=== PATIENT | female | born 1990 | race African-American/Black ===

== ENCOUNTER 2024-07-13 12:14 | Emergency (ER) | payer OTHER, SELFPAY ==
--- NOTE | ~2024-07-13 | XR_ITS ---
EXAMINATION: XR HAND/WRIST, RIGHT CLINICAL INFORMATION: punched the wall COMPARISON: None available. TECHNIQUE: PA, lateral, and oblique views of the right hand and wrist. FINDINGS: Normal bone mineralization. No fracture, dislocation, or suspicious bone lesion. Carpal bones are intact and normally aligned. No arthritic changes. Dorsal soft tissue swelling of the hand. XR/XR hand wrist RT IMPRESSION: 1. Soft tissue swelling dorsally. No fracture or dislocation. Electronically signed by: Fermin Noble MD 07/13/2024 01:06 PM JAIMEE
[2024-07-13 12:32] VITALS: BP 122/68; PULSE 93; O2SAT 100
--- NOTE | 2024-07-13 12:53 | ED.GENADULT ---
HPI - General Adult General Chief complaint: Extremity Injury, Upper Stated complaint: R HAND PAIN/PUNCHED WALL PER EMS Time Seen by Provider: 07/13/24 12:30 Source: patient Mode of arrival: ambulatory Limitations: no limitations History of Present Illness ED Provider: Sawyer Rees HPI narrative: 34 yold female with pmh Schizoaffective bipolar presents to the ED for right hand pain. Patient is is from [facility] as an inpatient. Today out of anger she punched a wall and cause pain. Patient denies anyone assaulting her or any blunt trauma by a weapon. Patient denies any suicidal or homicidal thoughts. Patient states complete range of motion of hand but does have some pain. Patient denies any other trauma. Related Data Allergies Allergy/AdvReac Type Severity Reaction Status Date / Time divalproex sodium AdvReac Unknown Unknown Verified 07/13/24 14:43 [From Depakote] haloperidol [From Haldol] AdvReac Unknown Unknown Verified 07/13/24 14:43 Review of Systems Review of Systems: Right hand pain Yes all other systems are reviewed and are negative [facility] Social History Social History Advance Directives: No Advance Directives Information Provided: No Physical Exam ED Vital Signs: Vital Signs - 24 hr 07/13/24 15:02 07/13/24 17:14 Temperature 97.3 F 97.8 F Pulse Rate 82 79 Respiratory Rate 16 13 Blood Pressure 119/57 L 107/53 L Pulse Oximetry 100 99 Oxygen Delivery Method Room Air Room Air BMI result Body Mass Index 26.8 Const General: cooperative, healthy appearing, comfortable, no acute distress, well developed, alert, awake and Physically active Orientation/consciousness: patient oriented x3 HENMT Head: Yes normal to inspection, Yes No palpable skull fracture present, Yes normocephalic and Yes atraumatic Eyes General: appearance normal, both eyes and all related structures Neck Neck: Yes normal visual inspection, Yes full ROM, Yes no lymphadenopathy, Yes no meningeal signs, Yes trachea midline, Yes supple, No anterior neck swelling and No tender Chest Chest palpation & inspection: normal inspection of the chest and normal palpation of entire chest wall Resp Effort & Inspection: normal respiratory effort and able to speak in complete sentences Auscultation: clear to auscultation bilaterally Cardio Jugular venous distension: no JVD Heart sounds: S1 normal heart sound present and S2 normal heart sound present GI Inspection: Yes normal to inspection Palpation (GI): Soft to palpation, not firm, nontender, no guarding and not rigid General: Yes no CVA tenderness Back/Spine/Pelvis Back: no CVA tenderness and No back tenderness Skin General skin exam: no rashes or lesions noted, elasticity normal and turgor normal Neuro General: patient oriented x3, gait normal, tone normal, moves all extremities, Normal light touch and pain sensation, no meningeal signs, no focal motor deficits, CN's II-XI intact bilaterally and normal sensation to monofilament Extrem General: Yes normal to inspection, Yes full ROM and Yes capillary refill normal Hand/finger images: 1. Positive for abrasion. Negative for active bleeding. Positive for swelling and tenderness on palpation. Patient has complete range of motion of all fingers. Negative for signs of tendon or nerve injury. Negative for erythema, warmth, coldness, bluish discoloration, or obvious deformity. Rest of extremity normal. Motor/neuro/vascular exam intact Psych Appearance: grossly normal, well kempt and not disheveled Medications Administered Discontinued Medications Generic Name Dose Route Start Last Admin Trade Name Freq PRN Reason Stop Dose Admin Acetaminophen 975 mg 07/13/24 13:04 07/13/24 14:59 Acetaminophen 325 Mg Tablet PO 07/13/24 13:05 975 mg ONCE ONE Administration Medical Decision Making Medical Decision Making [facility] Narrative: 34-year-old female with right hand pain after punching a wall out of anger. Patient is sent for x-ray. 1:53pm: Patient's x-ray negative for fracture. Abrasion no need for laceration repair. Wound cleaned. Patient is placed in Dustin wrap. Patient explained worrisome signs and informed to return to the ED immediately she has them. Not suspecting DVT, cellulitis, arterial occlusion, compartment syndrome, osteomyelitis, necrotizing fasciitis, or any other life threatening etiologies. Differential Diagnosis Differential Diagnoses: The differential diagnosis associated with the presentation includes (Dislocation, fracture) Admission/Observation Consideration of admission/observation: Escalation of care including admission/observation considered Lab Data [facility] Lab Attestation statement: I reviewed the patient's lab results. Independent Interpretation I performed an independent interpretation of an: Plain X-Ray Radiology Impression Discussion of test interpretation with radiology: I have reviewed the radiologist's reading. Independent Historian Clinical information obtained from an independent historian. History obtained from or confirmed by: EMS and Other (tana Black note, patient) External Record Review External record reviewed: Other (prior visits) Prescription Management I considered prescription management with: Pain Medication Discharge Plan Discharge Clinical Impression: Contusion Patient Disposition: Home, Self-Care Instructions: Contusion in Adults (ED) Additional Instructions: Your hand x-ray came back negative for fracture. Return to the ED immediately for any redness, swelling, bluish black discoloration, severe pain, red streaks, hotness, coldness, inability to move extremity, numbness/tingling, or any other concerning symptoms. [id number] Tylenol 375 (q8 PRN)/Motrin ( 200-400 Q6, PRN) can be given for pain by Jo. Recommend follow-up with primary care provider FINDINGS: Normal bone mineralization. No fracture, dislocation, or suspicious bone lesion. Carpal bones are intact and normally aligned. No arthritic changes. Dorsal soft tissue swelling of the hand. XR/XR hand wrist RT IMPRESSION: 1. Soft tissue swelling dorsally. No fracture or dislocation. Electronically signed by: Fermin Noble MD 07/13/2024 01:06 PM JAIMEE LINN Discharge Date/Time: 07/13/24 18:37 Print Language: British
[2024-07-13 14:42] VITALS: BMI 26.8
[2024-07-13] MEDS: Acetaminophen 325 MG TABLET 975 MG PO (14:59)
[2024-07-13 15:02] VITALS: BP 119/57; PULSE 82; RESP 16; TEMP 36.3; O2SAT 100
[2024-07-13 17:14] VITALS: BP 107/53; PULSE 79; RESP 13; TEMP 36.6; O2SAT 99
== END 2024-07-13 18:37 | disposition home or self-care (01) ==
PROVIDERS: Emergency Provider Emergency Medicine
DX: S60.221A Contusion of right hand, initial encounter (principal); W22.09XA Striking against other stationary object, initial encounter; Y93.89 Activity, other specified; Y92.199 Unspecified place in other specified residential institution as the place of occurrence of the external cause; Y99.9 Unspecified external cause status
CPT/HCPCS: 73110; 73130; 99283